=== PATIENT | male | born 1995 | race Caucasian/White ===

== ENCOUNTER 2019-10-12 20:36 | Emergency (ER) | payer OTHER ==
[2019-10-12] MEDS ORDERED: Bacitracin 1 PK ONE (20:59)
[2019-10-12] MEDS ORDERED: Doxycycline 100 MG CAP ONE (21:15)
== END 2019-10-12 21:10 | disposition home or self-care (01) ==
LOC: BURERS 20:36
DX: L03.116 Cellulitis of left lower limb (principal)